=== PATIENT | male | born 1945 | race Caucasian/White ===

== ENCOUNTER 2021-06-12 13:05 | Observation (INO) | payer MEDICARE, OTHER ==
[2021-06-12 13:23] LABS: #Eosinphils 0.2 thou/uL (0.0-0.7); #Monocytes 0.4 thou/uL (0.11-0.59); #Neutrophils 6.7 thou/uL (1.40-6.50); %Basophils 0.2 % (0.0-1.0); %Eosinophils 2.9 % (0.0-10.0); %Lymphocytes 12.4 % (21.0-51.0); %Monocytes 4.4 % (0.0-10.0); %Neutrophils 80.2 % (42.0-75.0); Hemoglobin 9.4 g/dL (14.0-18.0); Mean Corpuscular Hemoglobin 26.4 pg (27.0-31.0); Mean Corpuscular Volume 79.9 fL (78.0-98.0); Mean Platelet Volume 9.7 fL (7.4-10.4); Platelet Count 242 thou/uL (130-400); RBC Distribution Width 16.3 % (11.5-14.5); Red Blood Cell (RBC) Count 3.57 mill/uL (4.70-6.10); White Blood Cell (WBC) Count 8.4 thou/uL (4.8-10.8)
[2021-06-12] MEDS ORDERED: Iopamidol-370 76% 500 ML 1 ML ONE (13:27)
[2021-06-12 13:33] LABS: Prothrombin Time 13.3 sec (12.0-14.7)
[2021-06-12 13:43] LABS: ALT (SGPT) 17 U/L (8-55); AST (SGOT) 20 U/L (5-34); Alkaline Phosphatase 57 U/L (40-110); Anion Gap 11 mmol/L (10-20); BUN (Urea Nitrogen) 18 mg/dL (8.4-25.7); Bilirubin, Total 0.5 mg/dL (0.2-1.2); Calc. Creatinine Clearance 0 mL/min (70-130); Calcium 9.1 mg/dL (7.8-10.44); Carbon Dioxide 25 mmol/L (23-31); Chloride 109 mmol/L (98-107); Globulin 2.9 g/dL (2.4-3.5); Glucose 112 mg/dL (83-110); Potassium 4.4 mmol/L (3.5-5.1); Protein, Total 6.9 g/dL (5.8-8.1); Sodium 141 mmol/L (136-145)
[2021-06-12] MEDS ORDERED: Morphine 4 MG/ML VIAL ONE (14:03)
[2021-06-12] MEDS ORDERED: Boostrix 0.5 ML (Tdap) VIAL ONE ×2 (14:03→14:33)
[2021-06-12] MEDS ORDERED: Ondansetron PF 4 MG/2 ML Vial ONE (14:16)
[2021-06-12] MEDS ORDERED: hydrALAZINE 20 MG/ML VIAL SLOW IVP PRN (15:02)
[2021-06-12] MEDS ORDERED: Promethazine HCl 25 MG/ML VIAL IM PRN (15:02)
[2021-06-12] MEDS ORDERED: Ondansetron PF 4 MG/2 ML Vial IVP PRN (15:02)
[2021-06-12] MEDS ORDERED: traMADol HCl 50 MG TAB PO PRN (15:05)
[2021-06-12] MEDS ORDERED: Cyclobenzaprine 10 MG TAB PO PRN (15:05)
[2021-06-12] MEDS ORDERED: Rib Fracture Protocol IV SCH (15:15)
[2021-06-12 17:48] LABS: SARS-CoV-2 NAA Rapid Test Not Detected (NotDetected)
[2021-06-12] MEDS ORDERED: Ibuprofen 200 MG TAB ONE (19:31)
[2021-06-12] MEDS ORDERED: traMADol HCl 50 MG TAB ONE (19:31)
[2021-06-12] MEDS: traMADol HCl 50 MG TAB PO SCH ×2 (19:38→23:26)
[2021-06-12] MEDS: Ibuprofen 200 MG TAB PO SCH (19:40)
[2021-06-12] MEDS: Acetaminophen 500 MG TAB PO SCH (23:25)
[2021-06-12] MEDS: Ketorolac Tromethamine 30 MG/ML VIAL IVP SCH (23:26)
[2021-06-12] MEDS: Gabapentin 300 MG CAP PO SCH (23:32)
[2021-06-12] MEDS: Senokot S 8.6-50 MG TAB PO SCH (23:32)
[2021-06-12] MEDS: Famotidine 20 MG TAB PO SCH (23:32)
[2021-06-12 23:46] VITALS: BMI 23.8
[2021-06-13] MEDS: Acetaminophen 500 MG TAB PO SCH ×3 (02:42→16:44)
[2021-06-13] MEDS: Ibuprofen 200 MG TAB PO SCH ×3 (02:42→19:17)
[2021-06-13] MEDS: traMADol HCl 50 MG TAB PO SCH ×3 (05:30→18:53)
[2021-06-13] MEDS: Ketorolac Tromethamine 30 MG/ML VIAL IVP SCH ×3 (05:31→16:43)
[2021-06-13 05:36] LABS: #Lymphocytes 0.8 thou/uL (1.20-3.40); #Monocytes 0.4 thou/uL (0.11-0.59); #Neutrophils 6.2 thou/uL (1.40-6.50); %Basophils 0.2 % (0.0-1.0); %Eosinophils 0.1 % (0.0-10.0); %Lymphocytes 10.8 % (21.0-51.0); %Monocytes 5.5 % (0.0-10.0); %Neutrophils 83.4 % (42.0-75.0); Hemoglobin 8.4 g/dL (14.0-18.0); Mean Corpuscular HGB CONC 33.5 g/dL (32.0-36.0); Mean Corpuscular Hemoglobin 26.6 pg (27.0-31.0); Mean Corpuscular Volume 79.6 fL (78.0-98.0); Mean Platelet Volume 9.8 fL (7.4-10.4); Platelet Count 203 thou/uL (130-400); RBC Distribution Width 16.3 % (11.5-14.5); Red Blood Cell (RBC) Count 3.15 mill/uL (4.70-6.10); White Blood Cell (WBC) Count 7.5 thou/uL (4.8-10.8)
[2021-06-13 05:59] LABS: Anion Gap 8 mmol/L (10-20); BUN (Urea Nitrogen) 21 mg/dL (8.4-25.7); Calc. Creatinine Clearance 71 mL/min (70-130); Calcium 8.8 mg/dL (7.8-10.44); Carbon Dioxide 27 mmol/L (23-31); Chloride 106 mmol/L (98-107); Glucose 123 mg/dL (83-110); Potassium 4.6 mmol/L (3.5-5.1); Sodium 136 mmol/L (136-145)
[2021-06-13] MEDS ORDERED: Polyethylene Glycol 3350 17 GM Packet PO SCH (09:00)
[2021-06-13] MEDS ORDERED: Multivitamin W/ Minerals 1 TAB PO SCH (09:00)
[2021-06-13] MEDS ORDERED: Magnesium Oxide 250 MG TAB PO SCH (09:00)
[2021-06-13] MEDS: Senokot S 8.6-50 MG TAB PO SCH (09:43)
[2021-06-13] MEDS: Famotidine 20 MG TAB PO SCH (09:43)
[2021-06-13] MEDS: Gabapentin 300 MG CAP PO SCH ×2 (09:43→16:44)
[2021-06-13 20:19] VITALS: BP 163/75; TEMP 97.7
== END 2021-06-13 20:10 | disposition home or self-care (01) ==
LOC: ERS 13:05 → ERHOLD 15:06 → SURG B 22:08
PROVIDERS: ADMIT Surgery; ATTEND Surgery
DX: S42.114A Nondisplaced fracture of body of scapula, right shoulder, initial encounter for closed fracture (principal); S27.2XXA Traumatic hemopneumothorax, initial encounter; S22.41XA Multiple fractures of ribs, right side, initial encounter for closed fracture; S32.019A Unspecified fracture of first lumbar vertebra, initial encounter for closed fracture; S22.078A Other fracture of T9-T10 vertebra, initial encounter for closed fracture; S22.079A Unspecified fracture of T9-T10 vertebra, initial encounter for closed fracture; S06.9X9A Unspecified intracranial injury with loss of consciousness of unspecified duration, initial encounter; S01.01XA Laceration without foreign body of scalp, initial encounter; G89.11 Acute pain due to trauma; R56.9 Unspecified convulsions; I10 Essential (primary) hypertension; N28.1 Cyst of kidney, acquired; Z79.899 Other long term (current) drug therapy; Z20.822 Contact with and (suspected) exposure to COVID-19; W11.XXXA Fall on and from ladder, initial encounter
CPT/HCPCS: 12002; 36415; 70450; 71045; 71260; 72125; 74177; 80048; 80053; 84146; 85025; 85610; 85730; 86850; 86900; 86901; 90471; 90715; 94640; 96374; 96375; 96376; G0378; G0390; J1885; J2270; J2405; J7620; Q9967; U0002

== ENCOUNTER 2021-06-26 09:16 | Outpatient (CLI) | payer MEDICARE | END 2021-06-26 09:17 | disposition home or self-care (01) | LOC: BICRAD 09:16 | PROVIDERS: ATTEND Surgery | DX: S22.31XD Fracture of one rib, right side, subsequent encounter for fracture with routine healing (principal) | CPT/HCPCS: 71046 ==

== ENCOUNTER 2021-10-27 13:39 | Outpatient (CLI) | payer OTHER | END 2021-10-27 13:40 | disposition home or self-care (01) | LOC: CT 13:39 | PROVIDERS: ATTEND Student in an Organized Health Care Education/Training Program | DX: R42 Dizziness and giddiness (principal); R22.2 Localized swelling, mass and lump, trunk | CPT/HCPCS: 70450; 76999 ==